=== PATIENT | male | born 1950 | race Caucasian/White ===

== ENCOUNTER 2018-12-26 17:22 | Inpatient (IN) | payer OTHER ==
[2018-12-26] MEDS ORDERED: METOPROLOL TARTRATE 5 MG/5 ML INJ IV ONE (17:45)
[2018-12-26 17:48] LABS: Absolute Lymphocytes (CBC) 2.2 K/uL (0.7-4.9); Absolute Monocytes 0.8 K/uL (0.1-1.3); Basophils % 0.8 % (0-1.3); Eosinophils % 3.6 % (0-4.4); Hematocrit 45.9 % (39.6-49.0); Lymphocytes % 30.2 % (15.3-44.8); MPV 7.6 fL (7.6-11.3); Monocytes % 10.7 % (3.3-12.3); RBC Red Blood Cell Count 5.03 M/uL (4.33-5.43)
[2018-12-26 17:59] LABS: Protime INR 1.1
--- NOTE | 2018-12-26 18:15 | RAD REPORT ---
EXAM DESCRIPTION: Jacob Single View12/26/2018 5:59 pm CLINICAL HISTORY: Shortness of breath COMPARISON: none FINDINGS: The lungs appear clear of acute infiltrate. The heart is moderately enlarged IMPRESSION: No acute abnormalities displayed
[2018-12-26 18:17] LABS: ALT/SGPT 41 U/L (12-78); AST/SGOT 32 U/L (15-37); Albumin 4.5 g/dL (3.4-5.0); Alkaline Phosphatase 78 U/L (45-117); BUN Blood Urea Nitrogen 17 mg/dL (7-18); Bicarbonate 24 mmol/L (21-32); Bilirubin Direct 0.4 mg/dL (0-0.2); Bilirubin Total 2.3 mg/dL (0.2-1.0); Glucose Level 88 mg/dL (74-106); Magnesium 2.4 mg/dL (1.8-2.4); NT PRO-BNP 936 pg/mL (<125); Potassium 3.9 mmol/L (3.5-5.1); Protein, Total 8.1 g/dL (6.4-8.2); Sodium Level 139 mmol/L (136-145); Troponin (Emerg Dept Use Only) < 0.02 ng/mL (0.0-0.045)
[2018-12-26] MEDS ORDERED: METOPROLOL XL 50 MG TAB PO ONE (18:24)
[2018-12-26] MEDS ORDERED: ENOXAPARIN 80 MG/0.8 ML SQ ONE (18:39)
--- NOTE | 2018-12-26 18:51 | ER ---
Nurse's Notes [facility] Name: Rafi Morin Age: 68 yrs Sex: Male : 1950 Arrival Date: 12/26/2018 Time: 17:24 Bed 4 Private MD: Diagnosis: Atrial fibrillation and flutter-with rapid ventricular rate Presentation: 12/26 17:24 Presenting complaint: Patient states: "I was just at the doctor's office trying to get aa5 a refill for my high blood pressure medicines and they sent me here because my heart rate is high". Pt denies any symptoms. New onset A-fib RVR. 17:24 Transition of care: PCP office. Onset of symptoms was December 26, 2018. aa5 17:24 Acuity: JACEY 2 aa5 17:24 Method Of Arrival: Wheelchair aa5 21:45 Risk Assessment: Do you want to hurt yourself or someone else? Patient reports no aj desire to harm self or others. Initial Sepsis Screen: Does the patient meet any 2 criteria? No. Patient's initial sepsis screen is negative. Does the patient have a suspected source of infection? No. Patient's initial sepsis screen is negative. Care prior to arrival: None. Triage Assessment: 17:30 General: Appears in no apparent distress. comfortable, Behavior is anxious. Pain: aj Denies pain. Neuro: Level of Consciousness is awake, alert, obeys commands, Oriented to person, place, time, situation, Appropriate for age. Cardiovascular: Denies chest pain, Capillary refill < 3 seconds in bilateral fingers Patient's skin is warm and dry. Cardiovascular: Rhythm is atrial fibrillation. Respiratory: Airway is patent Respiratory effort is even, unlabored, Respiratory pattern is regular, symmetrical. Derm: Skin is intact, is healthy with good turgor, Skin is pink, warm \\T\\ dry. normal. Historical: - Allergies: 21:46 No Known Allergies; aj - PMHx: 17:24 Hypertension; aa5 - Immunization history:: Adult Immunizations up to date. - Social history:: Smoking status: Patient/guardian denies using tobacco, Patient uses alcohol, on a daily basis. - Ebola Screening: : No symptoms or risks identified at this time. Screenin:50 Abuse screen: Denies threats or abuse. Denies injuries from another. Nutritional aj screening: No deficits noted. Tuberculosis screening: No symptoms or risk factors identified. Fall Risk None identified. Assessment: 18:05 Reassessment: No changes from previously documented assessment. General: Appears. aj 19:50 Reassessment: Patient appears in no apparent distress at this time. No changes from aj previously documented assessment. Patient and/or family updated on plan of care and expected duration. Pain level reassessed. Patient is alert, oriented x 3, equal unlabored respirations, skin warm/dry/pink. Patient denies pain at this time. Vital Signs: 17:33 BP 163 / 125; Pulse 148; Resp 22; Temp 98.4; Pulse Ox 98% on R/A; Weight 79.38 kg; aj Height 5 ft. 10 in. (177.80 cm); 17:36 BP 143 / 110; Pulse 137; aj 17:38 BP 149 / 115; Pulse 128; aj 17:50 BP 141 / 110; Pulse 116; aj 18:05 BP 136 / 103; Pulse 119; aj 21:42 BP 101 / 84; Pulse 104; Resp 19; Pulse Ox 99% on R/A; aj 17:33 Body Mass Index 25.11 (79.38 kg, 177.80 cm) aj ED Course: 17:24 Patient arrived in ED. jr8 17:24 Arm band placed on. aa5 17:24 Patient placed in an exam room, on a stretcher. aa5 17:30 Ren Paz PA is PHCP. jr8 17:30 Breana Andrade MD is Attending Physician. jr8 17:30 Christina Kinney, RN is Primary Nurse. aj 17:42 Triage completed. aa5 17:59 XRAY Chest (1 view) In Process Unspecified. EDMS 18:02 EKG done, by ED staff. 3 18:50 Daryl Ram MD is Hospitalizing Provider. jr8 19:00 Inserted saline lock: 20 gauge in right antecubital area, using aseptic technique. aj Blood collected. 19:50 Patient has correct armband on for positive identification. aj 21:44 No provider procedures requiring assistance completed. Patient admitted, IV remains in aj place. intact. Administered Medications: 07:33 Drug: Metoprolol 5 mg Route: IVP; Site: right antecubital; aj 17:36 Drug: Metoprolol 5 mg Route: IVP; Site: right antecubital; aj 17:36 Follow up: BP 143 / 110; Pulse 137 bpm; Response: No adverse reaction aj 17:38 Follow up: BP 149 / 115; Pulse 128 bpm; Response: No adverse reaction aj 17:42 Drug: Metoprolol 5 mg Route: IVP; Site: right antecubital; aj 17:50 Follow up: BP 141 / 110; Pulse 116 bpm; Response: No adverse reaction aj 18:15 Drug: Metoprolol TARTRATE (Lopressor) 50 mg Route: PO; aj 21:53 Follow up: Response: Blood pressure is lowered aj 18:28 Drug: Lovenox 1 mg/kg Route: Sub-Q; Site: abdomen; aj 21:53 Follow up: Response: No adverse reaction aj Outcome: 18:50 Decision to Hospitalize by Provider. janice 21:52 Admitted to Med/surg accompanied by tech, room 206, Report called to Penny warner 21:52 Condition: good 21:52 Instructed on the need for admit. 22:02 Patient left the ED. aj Signatures: Dispatcher [employer] Christina Corona, RN RN Leanne Humphrey, RN RN [email or web address] Ren Paz PA PA jr8 Jane Kauffman 3
--- NOTE | 2018-12-26 18:51 | EDPHYS ---
Physician Documentation [facility] Name: Rafi Morin Age: 68 yrs Sex: Male : 1950 Arrival Date: 12/26/2018 Time: 17:24 Bed 4 Private MD: ED Physician Breana Andrade HPI: 12/26 17:44 This 68 yrs old Male presents to ER via Wheelchair with complaints of jr8 Elevated HR. 17:44 Onset: The symptoms/episode began/occurred at an unknown time. Duration: The patient or jr8 guardian reports a single episode, that is still ongoing. Associated signs and symptoms: The patient has no apparent associated signs or symptoms. Severity of symptoms: At their worst the symptoms were very mild in the emergency department the symptoms are unchanged. It is unknown whether or not the patient has had similar symptoms in the past. The patient has been recently seen by a physician: the patient's primary care provider. Patient stated that he was at PCP office for routine f/u today for BP medication refill. At office it was noted that patient has markedly elevated irregular pulse. ECG completed at office showing atrial fib with RVR. Patient denies any symptoms. Unknown how long this had been going on. Brought to ED for evaluation. Historical: - Allergies: 21:46 No Known Allergies; aj - PMHx: 17:24 Hypertension; aa5 - Immunization history:: Adult Immunizations up to date. - Social history:: Smoking status: Patient/guardian denies using tobacco, Patient uses alcohol, on a daily basis. - Ebola Screening: : No symptoms or risks identified at this time. ROS: 17:44 Eyes: Negative for injury, pain, redness, and discharge, ENT: Negative for injury, jr8 pain, and discharge, Neck: Negative for injury, pain, and swelling, Cardiovascular: Negative for chest pain, palpitations, and edema, Respiratory: Negative for shortness of breath, cough, wheezing, and pleuritic chest pain, Abdomen/GI: Negative for abdominal pain, nausea, vomiting, diarrhea, and constipation, Back: Negative for injury and pain, MS/Extremity: Negative for injury and deformity, Skin: Negative for injury, rash, and discoloration, Neuro: Negative for headache, weakness, numbness, tingling, and seizure. Exam: 17:44 Eyes: Pupils equal round and reactive to light, extra-ocular motions intact. Lids and jr8 lashes normal. Conjunctiva and sclera are non-icteric and not injected. Cornea within normal limits. Periorbital areas with no swelling, redness, or edema. ENT: Nares patent. No nasal discharge, no septal abnormalities noted. Tympanic membranes are normal and external auditory canals are clear. Oropharynx with no redness, swelling, or masses, exudates, or evidence of obstruction, uvula midline. Mucous membranes moist. Neck: Trachea midline, no thyromegaly or masses palpated, and no cervical lymphadenopathy. Supple, full range of motion without nuchal rigidity, or vertebral point tenderness. No Meningismus. Chest/axilla: Normal chest wall appearance and motion. Nontender with no deformity. No lesions are appreciated. Respiratory: Lungs have equal breath sounds bilaterally, clear to auscultation and percussion. No rales, rhonchi or wheezes noted. No increased work of breathing, no retractions or nasal flaring. Abdomen/GI: Soft, non-tender, with normal bowel sounds. No distension or tympany. No guarding or rebound. No evidence of tenderness throughout. Back: No spinal tenderness. No costovertebral tenderness. Full range of motion. Skin: Warm, dry with normal turgor. Normal color with no rashes, no lesions, and no evidence of cellulitis. MS/ Extremity: Pulses equal, no cyanosis. Neurovascular intact. Full, normal range of motion. Neuro: Awake and alert, GCS 15, oriented to person, place, time, and situation. Cranial nerves II-XII grossly intact. Motor strength 5/5 in all extremities. Sensory grossly intact. Cerebellar exam normal. Normal gait. 17:44 Cardiovascular: Rate: tachycardic, actual rate is 160 bpm, Rhythm: irregularly irregular, Pulses: Pulses are 2+ in right radial artery and left radial artery. Edema: is not appreciated, JVD: is not appreciated. 17:51 ECG was reviewed by the Attending Physician. [facility] Vital Signs: 17:33 BP 163 / 125; Pulse 148; Resp 22; Temp 98.4; Pulse Ox 98% on R/A; Weight 79.38 kg; aj Height 5 ft. 10 in. (177.80 cm); 17:36 BP 143 / 110; Pulse 137; aj 17:38 BP 149 / 115; Pulse 128; aj 17:50 BP 141 / 110; Pulse 116; aj 18:05 BP 136 / 103; Pulse 119; aj 21:42 BP 101 / 84; Pulse 104; Resp 19; Pulse Ox 99% on R/A; aj 17:33 Body Mass Index 25.11 (79.38 kg, 177.80 cm) aj MDM: 17:30 Patient medically screened. [facility] 18:49 Data reviewed: vital signs, nurses notes, lab test result(s), EKG, radiologic studies, jr8 plain films. Data interpreted: Pulse oximetry: on room air is 98 %. Interpretation: normal. Counseling: I had a detailed discussion with the patient and/or guardian regarding: the historical points, exam findings, and any diagnostic results supporting the discharge/admit diagnosis, lab results, radiology results, the need for further work-up and treatment in the hospital. Physician consultation: Ranjith Miller DO was called at 18:50, was contacted at 18:50, regarding admission, to the telemetry unit. consult, patient's condition, and will see patient. 12/26 17:30 Order name: Basic Metabolic Panel; Complete Time: 18:21 12/26 17:30 Order name: CBC with Diff; Complete Time: 17:59 12/26 17:30 Order name: LFT's; Complete Time: 18:21 12/26 17:30 Order name: Magnesium; Complete Time: 18:21 12/26 17:30 Order name: NT PRO-BNP; Complete Time: 18:21 12/26 17:30 Order name: PT-INR; Complete Time: 18:08 12/26 17:30 Order name: Troponin (emerg Dept Use Only); Complete Time: 18:21 12/26 17:30 Order name: XRAY Chest (1 view); Complete Time: 18:21 12/26 17:30 Order name: EKG; Complete Time: 17:31 12/26 17:30 Order name: Cardiac monitoring; Complete Time: 17:46 12/26 17:30 Order name: EKG - Nurse/Tech; Complete Time: 17:46 12/26 17:30 Order name: IV Saline Lock; Complete Time: 17:46 12/26 17:30 Order name: Labs collected and sent; Complete Time: 17:46 12/26 17:30 Order name: O2 Per Protocol; Complete Time: :12/26 17:30 Order name: O2 Sat Monitoring; Complete Time: 17: EC:51 Rate is 145 beats/min. Rhythm is irregularly irregular, A fib. QRS [place] is Normal. QRS jr8 interval is normal at 80 msec. QT interval is prolonged at 459 msec. No Q waves. T waves are Flattened in lead aVL. No ST changes noted. Clinical impression: Atrial Fibrillation. Interpreted by me. Reviewed by me. Administered Medications: 07:33 Drug: Metoprolol 5 mg Route: IVP; Site: right antecubital; aj 17:36 Drug: Metoprolol 5 mg Route: IVP; Site: right antecubital; aj 17:36 Follow up: BP 143 / 110; Pulse 137 bpm; Response: No adverse reaction aj 17:38 Follow up: BP 149 / 115; Pulse 128 bpm; Response: No adverse reaction aj 17:42 Drug: Metoprolol 5 mg Route: IVP; Site: right antecubital; aj 17:50 Follow up: BP 141 / 110; Pulse 116 bpm; Response: No adverse reaction aj 18:15 Drug: Metoprolol TARTRATE (Lopressor) 50 mg Route: PO; aj 21:53 Follow up: Response: Blood pressure is lowered aj 18:28 Drug: Lovenox 1 mg/kg Route: Sub-Q; Site: abdomen; aj 21:53 Follow up: Response: No adverse reaction aj Disposition: 12/26/18 18:50 Hospitalization ordered by Daryl Ram for Observation. Preliminary diagnosis is Atrial fibrillation and flutter - with rapid ventricular rate. - Bed requested for Telemetry/MedSurg (observation). - Status is Observation. aj - Condition is Stable. - Problem is new. - Symptoms have improved. UTI on Admission? No Signatures: Dispatcher [employer] Christina Corona RN Leanne Jose RN RN aa5 Ren Paz PA PA jr8 Anita Webb RN RN cg Corrections: (The following items were deleted from the chart) 21:26 18:50 Hospitalization Ordered by Daryl Ram MD for Observation. Preliminary cg diagnosis is Atrial fibrillation and flutter - with rapid ventricular rate. Bed requested for Telemetry/MedSurg (observation). Status is Observation. Condition is Stable. Problem is new. Symptoms have improved. UTI on Admission? No. jr8 22:02 21:26 12/26/2018 18:50 Hospitalization Ordered by Daryl Ram MD for Observation. aj Preliminary diagnosis is Atrial fibrillation and flutter - with rapid ventricular rate. Bed requested for Telemetry/MedSurg (observation). Status is Observation. Condition is Stable. Problem is new. Symptoms have improved. UTI on Admission? No. cg
--- NOTE | 2018-12-26 21:04 | P.HP ---
Certification for Inpatient Patient admitted to: Observation With expected LOS: <2 Midnights Practitioner: I am a practitioner with admitting privileges, knowledge of patient current condition, hospital course, and medical plan of care. Services: Services provided to patient in accordance with Admission requirements found in Title 42 Section 412.3 of the Code of Federal Regulations Patient History Date of Service: 12/26/18 Reason for admission: new onset A.Fib History of Present Illness: Mr Morin is a 68 years old male with history of HTN, who went today to his PCP office to have refill of his home medication. While having his vitals signs checked, he was found to be tachycardic at 160 bpm. He denied any chest pain, SOB, dizziness or palpitation associated. The patient then was referred to ED for evaluation. EKG at arrival showed A.Fib at 140's bpm. Lab work remarkable for elevated total bili 2.3 and pro-BNP. He states that drinks about 6 beers every night, sometimes more. CXR shows no acute abnormalities. In ER he was treated with several rounds of Lopressor IV, currently his HR is 120's with stable BP. Home medications list reviewed: Yes - Past Medical/Surgical History -: HTN Past Surgical History: Reviewed- Non-Contributory - Family History Family History: Reviewed- Non-Contributory - Social History Smoking Status: Never smoker Alcohol use: Yes CD- Drugs: No Place of Residence: Home Review of Systems 10-point ROS is otherwise unremarkable Physical Examination - Physical Exam General: Alert, In no apparent distress HEENT: Atraumatic, PERRLA, Mucous membr. moist/pink, EOMI, Sclerae nonicteric Neck: Supple, 2+ carotid pulse no bruit, No LAD, Without JVD or thyroid abnormality Respiratory: Clear to auscultation bilaterally, Normal air movement Cardiovascular: Normal S1 S2, Irregular heart rate/rhythm Gastrointestinal: Normal bowel sounds, No tenderness Musculoskeletal: No tenderness Integumentary: No rashes Neurological: Normal speech, Normal strength at 5/5 x4 extr, Normal tone, Normal affect Lymphatics: No axilla or inguinal lymphadenopathy - Studies Laboratory Data (last 24 hrs) 12/26/18 17:30: PT 12.9 H, INR 1.10 12/26/18 17:30: WBC 7.4, Hgb 15.0, Hct 45.9, Plt Count 192 12/26/18 17:30: Sodium 139, Potassium 3.9, BUN 17, Creatinine 0.78, Glucose 88, Magnesium 2.4, Total Bilirubin 2.3 H, AST 32, ALT 41, Alkaline Phosphatase 78 Assessment and Plan - Problems (Diagnosis) (1) New onset atrial fibrillation Current Visit: Yes Status: Acute (2) HTN (hypertension) Current Visit: Yes Status: Acute Qualifiers: Hypertension type: essential hypertension Qualified Code(s): I10 - Essential (primary) hypertension (3) Alcohol abuse Current Visit: Yes Status: Acute - Plan Will admit the patient due to new onset A.Fib. Will order ECHO, TSH, cardiology consult. Continue with oral lopressor. Will start Eliquis, this needs to be changed for warfarin if A.fib is secondary to valvular disease. Follow up cardiology recommendations. - Advance Directives Does patient have a Living Will: No Does patient have a Durable POA for Healthcare: No - Code Status/Comfort Care Code Status Assessed: Yes Code Status: Full Code
[2018-12-26] MEDS: APIXABAN 5 MG TABLET PO SCH (21:44)
[2018-12-26] MEDS ORDERED: LORAZEPAM 1 MG TABLET PO PRN (21:44)
[2018-12-26] MEDS ORDERED: ONDANSETRON 4 MG/2 ML VIAL IV PRN (21:44)
[2018-12-26 23:00] VITALS: BMI 26.3
[2018-12-27 05:56] LABS: Magnesium 2.4 mg/dL (1.8-2.4); Potassium 4.1 mmol/L (3.5-5.1); Thyroid Stimulating Hormone 2.21 uIU/mL (0.360-3.740)
[2018-12-27 05:57] LABS: Urine Appearance CLEAR; Urine Bilirubin NEGATIVE (NEG); Urine Blood NEGATIVE (NEG); Urine Color YELLOW; Urine Glucose NEGATIVE (NEG); Urine Protein NEGATIVE (NEG); Urine Specific Gravity 1.015 (1.005-1.030)
[2018-12-27 05:58] LABS: Urine Microscopic Reflex NO UMIC
[2018-12-27] MEDS ORDERED: METOPROLOL TAR 25 MG TAB PO SCH (06:00)
--- NOTE | 2018-12-27 07:13 | EKG ---
Test Date: 2018-12-26 Test Time: 17:30:37 Test Baker: [place] MEASUREMENT RESULTS: Intervals: Rate: 145 NH: QRSD: 80 QT: 296 QTc: 459 Mcdonald: P: NH: QRS: 0 T: 97 INTERPRETIVE STATEMENTS: Atrial fibrillation with rapid ventricular response Nonspecific ST and T wave abnormality Abnormal ECG No previous ECG available for comparison Electronically Signed On 12-27-18 07:12:31 CDT by Shelton Humphries
[2018-12-27] MEDS ORDERED: PNEUMOCOCCAL VACCINE 0.5 ML IMVAC ONE (08:00)
[2018-12-27] MEDS: APIXABAN 5 MG TABLET PO SCH ×2 (08:28→21:12)
[2018-12-27] MEDS: SOTALOL HCL 80 MG TAB PO SCH ×2 (09:14→21:12)
[2018-12-27] MEDS: FOLIC ACID 1 MG TABLET PO SCH (09:15)
[2018-12-27] MEDS: THIAMINE HCL 100 MG TABLET PO SCH (09:15)
[2018-12-27] MEDS ORDERED: NA CHLORIDE 0.9% 250 ML IV ONE (12:26)
--- NOTE | 2018-12-27 13:16 | P.PN ---
Subjective Date of Service: 12/27/18 Primary Care Provider: none Chief Complaint: new onset A.Fib Subjective: Improving Physical Examination - Vital Signs Temperature: 97.0 F Blood Pressure: 90/60 Pulse: 51 Respirations: 18 Pulse Ox (%): 94 - Physical Exam General: Alert, In no apparent distress, Oriented x3, Cooperative HEENT: Atraumatic Neck: Supple Respiratory: Clear to auscultation bilaterally, Normal air movement Cardiovascular: Irregular heart rate/rhythm (Atrial fibrillation slightly elevated rate) Gastrointestinal: Normal bowel sounds, Soft and benign, Non-distended, No tenderness, No masses, No rebound, No guarding Musculoskeletal: No erythema, No tenderness, No warmth Integumentary: No tenderness/swelling, No erythema, No warmth, No cyanosis Neurological: Normal speech, Normal strength at 5/5 x4 extr, Normal tone, Normal affect - Studies Laboratory Data (last 24 hrs) 12/26/18 17:30: PT 12.9 H, INR 1.10 12/26/18 17:30: WBC 7.4, Hgb 15.0, Hct 45.9, Plt Count 192 12/26/18 17:30: Sodium 139, Potassium 3.9, BUN 17, Creatinine 0.78, Glucose 88, Magnesium 2.4, Total Bilirubin 2.3 H, AST 32, ALT 41, Alkaline Phosphatase 78 Medications List Reviewed: Yes Assessment & Plan Discharge Plan: Home Plan to discharge in: 24 Hours Physician Review Additional Text: Impression: New onset atrial fibrillation Alcohol abuse Plan: New onset atrial fibrillation: Case discussed at length with cardiology. Patient will be transition from metoprolol to Betapace. Patient on chronic anti coagulation therapy at this time. Patient had low blood pressure this morning. Patient given fluid bolus. Patient asymptomatic. Will provide IV fluids at this time. Will monitor closely. Will continue with Betapace 80 mg 1 pill twice daily. Thyroid level unremarkable. Echocardiogram pending. Anticipate discharge in the next 24 hr. Alcohol abuse: Will provide thiamine. No evidence of withdrawal. Cessation addressed in detail. Time Spent Managing Pts Care (In Minutes): 55
[2018-12-27] MEDS: NACHLORIDE 0.45% 1,000 ML IV SCH (13:24)
--- NOTE | 2018-12-27 15:31 | CON ---
Date of Consultation: 12/27/[address] Lee's service on 12/26/2018. I saw the patient on 12/27/2018. Reason For Consultation: Atrial fibrillation. History Of Present Illness: Mr. Morin is a 68-year-old white male, has a history of hypertension, alcohol abuse, otherwise fairly healthy. He went to Dr. Hauser's office for a regular checkup and w as found to be in atrial fibrillation, rapid ventricular response without any symptoms. He denied PN D, orthopnea, pedal edema, palpitations, or syncope. Denied any chest pain. Denied any unexplained nausea, vomiting, diaphoresis. Past Medical History: Hypertension. Allergies: NONE. Review of Systems: Negative. Social History: Positive for alcohol. Family History: Negative. Physical Examination: Vital Signs: Stable. He is in atrial fibrillation, rate of 110 to 130. HEENT: Negative. Neck: Supple with no bruit. Chest: Clear. Cardiac: Revealed atrial fibrillation. No murmurs, gallops, or rubs. Abdomen: Benign. Extremities: Revealed no clubbing, cyanosis, or edema. Diagnostic Data: His chest x-ray was negative. EKG showed atrial fibrillation. BNP was 936. Rest of it was normal. Impression And Plan: Atrial fibrillation of unknown duration. The patient may have been in atrial f ibrillation for longer than we think. His TSH is normal. Echocardiogram is pending. Beta-blockers have not worked so far. The rate is better controlled. I agree with Gissell. I think we should swi tch him to Betapace and see how he does. Eventually, a stress test may be indicated. His blood pres sure is well controlled. BNP elevation is nonspecific and may be secondary to atrial fibrillation. Case was discussed with Dr. Miller. REESE/MARIA VICTORIA Voice ID: [id number] Report ID: [id number]
--- NOTE | 2018-12-28 08:16 | ECHO ---
HEIGHT: 6 ft 1 in WEIGHT: 199 lb 12.8 oz DATE OF STUDY: 12/27/[address]: Daryl Lee MD 2-DIMENSIONAL: YES M.MODE: YES DOPPLER: YES COLOR FLOW: YES TDS: NO PORTABLE: NO DEFINITY: NO BUBBLE STUDY: NO DIAGNOSIS: ATRIAL FIBRILLATION CARDIAC HISTORY: CATHERIZATION: NO SURGERY: NO PROSTHETIC VALVE: NO PACEMAKER: NO MEASUREMENTS (cm) DIASTOLIC (NORMALS) SYSTOLIC (NORMALS) IVSd 1.1 (0.6-1.2) LA Diam 4.5 (1.9-4.0) LVEF 51% LVIDd 3.6 (3.5-5.7) LVIDs 2.7 (2.0-3.5) %FS 25% LVPWd 1.3 (0.6-1.2) Ao Diam 3.4 (2.0-3.7) 2 DIMENSIONAL ASSESSMENT: RIGHT ATRIUM: DILATED LEFT ATRIUM: DILATED RIGHT VENTRICLE: DILATED LEFT VENTRICLE: NORMAL TRICUSPID VALVE: NORMAL MITRAL VALVE: NORMAL PULMONIC VALVE: NORMAL AORTIC VALVE: NORMAL PERICARDIAL EFFUSION: NONE AORTIC ROOT: NORMAL LEFT VENTRICULAR WALL MOTION: PARADOXICAL SEPTAL MOTION. DOPPLER/COLOR FLOW: MILD MITRAL REGURGITATION. MODERATE TRICUSPID REGURGITATION. MODERATE PULMONARY HYPERTENSION. ESTIMATED RIGHT VENTRICULAR SYSTOLIC PRESSURE 50 MMHG. ESTIMATED RIGHT ATRIAL PRESSURE 15MMGH. COMMENTS: NORMAL LEFT VENTRICULAR EJECTION FRACTION WITH PARADOXICAL SEPTAL MOTION. DILATED RIGHT ATRIUM, RIGHT VENTRICLE, AND LEFT ATRIUM. MILD MITRAL REGURGITATION. MODERATE TRICUSPID REGURGITATION. MODERATE PULMONARY HYPERTENSION. ATRIAL FIBRILLATION. TECHNOLOGIST: JAMAL MATUTE [facility]
[2018-12-28] MEDS: FOLIC ACID 1 MG TABLET PO SCH (08:22)
[2018-12-28] MEDS: APIXABAN 5 MG TABLET PO SCH (08:23)
[2018-12-28] MEDS: THIAMINE HCL 100 MG TABLET PO SCH (08:23)
[2018-12-28] MEDS: SOTALOL HCL 80 MG TAB PO SCH (08:23)
--- NOTE | 2018-12-28 09:21 | P.DS ---
Admission Date: 12/27/18 Discharge Date: 12/28/18 Primary Care Provider: Dr. Castro Disposition: ROUTINE DISCHARGE Discharge Condition: GOOD Reason for Admission: new onset A.Fib Consultations: Cardiology-Dr. Craven/Dr. Humphries Procedures: CXR: COMPARISON: none FINDINGS: The lungs appear clear of acute infiltrate. The heart is moderately enlarged IMPRESSION: No acute abnormalities displayed ECHO: EF 51% LEFT VENTRICULAR WALL MOTION: PARADOXICAL SEPTAL MOTION. DOPPLER/COLOR FLOW: MILD MITRAL REGURGITATION. MODERATE TRICUSPID REGURGITATION. MODERATE PULMONARY HYPERTENSION. ESTIMATED RIGHT VENTRICULAR SYSTOLIC PRESSURE 50 MMHG. ESTIMATED RIGHT ATRIAL PRESSURE 15MMGH. COMMENTS: NORMAL LEFT VENTRICULAR EJECTION FRACTION WITH PARADOXICAL SEPTAL MOTION. DILATED RIGHT ATRIUM, RIGHT VENTRICLE, AND LEFT ATRIUM. MILD MITRAL REGURGITATION. MODERATE TRICUSPID REGURGITATION. MODERATE PULMONARY HYPERTENSION. ATRIAL FIBRILLATION. Medical Problem List: New onset atrial fibrillation Moderate Pulmonary hypertension with moderate tricuspid regurgitation Alcohol abuse Brief History of Present Illness: 68-year-old male presented to his PCP for follow up. Patient found to have irregular heartbeat. Patient with AFib with RVR. Patient was seen and evaluated in the emergency room. Patient admitted for further evaluation and treatment. Hospital Course: Patient presented with irregular heartbeat. Patient found to have atrial fibrillation. Patient was admitted for treatment. Patient seen and evaluated by Cardiology. Patient was placed on anti coagulation therapy along with Betapace. Patient remains in atrial fibrillation. Rate stable at this time. Echocardiogram shows moderate pulmonary hypertension with moderate tricuspid regurgitation. Patient without any significant chest pain or shortness of breath. Medications have been adjusted. Patient no longer on amlodipine. At discharge patient will continue with Betapace 80 mg 1 pill twice daily and Eliquis 5 mg 1 pill twice daily. Patient will be provided education on atrial fibrillation and chronic anti coagulation therapy. Recommend to follow up with cardiology in 1-2 weeks to follow up this hospitalization and continue his care. Patient with history of alcohol abuse. Patient may continue with thiamine 1 pill daily. Recommend alcohol cessation. Education will be provided. Vital Signs/Physical Exam: Temp Pulse Resp BP Pulse Ox 98.4 F 119 H 16 120/84 98 12/28/18 04:00 12/28/18 04:00 12/28/18 04:00 12/28/18 04:00 12/28/18 04:00 General: Alert, In no apparent distress, Oriented x3, Cooperative HEENT: Atraumatic Neck: Supple Respiratory: Clear to auscultation bilaterally, Normal air movement Cardiovascular: Irregular heart rate/rhythm (Atrial fibrillation) Gastrointestinal: Normal bowel sounds, Soft and benign, Non-distended, No tenderness, No masses, No rebound, No guarding Musculoskeletal: No erythema, No tenderness, No warmth Integumentary: No tenderness/swelling, No erythema, No warmth, No cyanosis Neurological: Normal speech, Normal strength at 5/5 x4 extr, Normal tone, Normal affect Laboratory Data at Discharge: WBC 7.4 K/uL (4.3-10.9) 12/26/18 17:30 Hgb 15.0 g/dL (13.6-17.9) 12/26/18 17:30 Hct 45.9 % (39.6-49.0) 12/26/18 17:30 Plt Count 192 K/uL (152-406) 12/26/18 17:30 PT 12.9 SECONDS (9.5-12.5) H 12/26/18 17:30 INR 1.10 12/26/18 17:30 Sodium 142 mmol/L (136-145) 12/27/18 05:00 Potassium 4.1 mmol/L (3.5-5.1) 12/27/18 05:00 BUN 19 mg/dL (7-18) H 12/27/18 05:00 Creatinine 0.88 mg/dL (0.55-1.3) 12/27/18 05:00 Glucose 102 mg/dL (74-106) 12/27/18 05:00 Magnesium 2.4 mg/dL (1.8-2.4) 12/27/18 05:00 Total Bilirubin 2.3 mg/dL (0.2-1.0) H 12/26/18 17:30 AST 32 U/L (15-37) 12/26/18 17:30 ALT 41 U/L (12-78) 12/26/18 17:30 Alkaline Phosphatase 78 U/L (45-117) 12/26/18 17:30 Home Medications: Apixaban [Eliquis] 5 mg PO BID #60 tablet 12/27/18 Sotalol HCl [Betapace*] 80 mg PO BID #60 tab 12/27/18 Thiamine HCl [Vitamin B-1*] 100 mg PO DAILY #30 tablet 12/27/18 New Medications: Apixaban [Eliquis] 5 mg PO BID #60 tablet Sotalol HCl [Betapace*] 80 mg PO BID #60 tab Thiamine HCl [Vitamin B-1*] 100 mg PO DAILY #30 tablet Patient Discharge Instructions: 1. Recommend to follow up with his PCP in 1 week to follow up this hospitalization. 2. Patient presented with irregular heartbeat. Patient found to have atrial fibrillation. Patient was admitted for treatment. Patient seen and evaluated by Cardiology. Patient was placed on anti coagulation therapy along with Betapace. Patient remains in atrial fibrillation. Rate stable at this time. Echocardiogram shows moderate pulmonary hypertension with moderate tricuspid regurgitation. Patient without any significant chest pain or shortness of breath. Medications have been adjusted. Patient no longer on amlodipine. At discharge patient will continue with Betapace 80 mg 1 pill twice daily and Eliquis 5 mg 1 pill twice daily. Patient will be provided education on atrial fibrillation and chronic anti coagulation therapy. Recommend to follow up with cardiology in 1-2 weeks to follow up this hospitalization and continue his care. 3. Patient with history of alcohol abuse. Patient may continue with thiamine 1 pill daily. Recommend alcohol cessation. Education will be provided. Diet: AHA Activity: Ad angelo Time spent managing pt's care (in minutes): 55
[2018-12-28] MEDS: NACHLORIDE 0.45% 1,000 ML IV SCH (10:00)
[2018-12-28 10:35] VITALS: BP 134/79; TEMP 97.9
[2018-12-28 10:51] VITALS: O2SAT 98
== END 2018-12-28 12:05 | disposition home or self-care (01) | DRG 310 ==
LOC: ER 17:22 → ERHOLD 21:04 → 2ND 21:53 → OBSVTOIN 12-27 20:04
PROVIDERS: ADMIT Internal Medicine; ATTEND Family Medicine
DX: I48.91 Unspecified atrial fibrillation (principal); I10 Essential (primary) hypertension; F10.10 Alcohol abuse, uncomplicated; I27.20 Pulmonary hypertension, unspecified; I36.1 Nonrheumatic tricuspid (valve) insufficiency; Z23 Encounter for immunization
CPT/HCPCS: 36415; 71045; 80048; 80076; 81003; 83735; 83880; 84443; 84484; 85025; 85610; 90670; 93005; 93306; 96372; 96374; 99285; G0009; G0378; J1650

== ENCOUNTER 2019-01-22 07:26 | Day surgery (SDC) | payer OTHER ==
--- OUTSIDE RECORDS SUMMARY | 2019-01-22 07:27 | XMS REPORT | Clinical Summary ---
:1950 Author Organization [facility] Address [address] [place] [address] Care Team Providers Name Role Phone Ranulfo Hauser MD Primary Care Provider Allergies No Known Allergies Medications Medication Sig Dispensed Refills Start Date End Date Status amLODIPine (NORVASC) 10 1 11/14/2018 Active mg tablet naproxen sodium (ALEVE) Take by mouth. 0 Active 220 mg capsule acetaminophen (TYLENOL) Take 325 mg by 0 Active 325 MG tablet mouth every 6 (six) hours as needed for fever. Active Problems Not on file Encounters Date Type Specialty Care Team Description 12/18/2018 Office Visit Orthopedic Surgery Kal Nixon, Arthralgia of right knee (Primary Dx); Primary osteoarthritis of right knee after 01/21/2018 Social History Tobacco Use Types Packs/Day Years Used Date Never Smoker Smokeless Tobacco: Never Used Alcohol Use Drinks/Week oz/Week Comments Yes 24 Cans of beer Sex Assigned at Date Recorded Not on file Job Start Date Occupation Industry Not on file Not on file Not on file Travel History Travel Start Travel End No recent travel history available. Last Filed Vital Signs Vital Sign Reading Time Taken Blood Pressure - - Pulse - - Temperature - - Respiratory Rate - - Oxygen Saturation - - Inhaled Oxygen Concentration - - Weight 90.7 kg (200 lb) 12/18/2018 12:11 PM CDT Height 185.4 cm (6' 1") 12/18/2018 12:11 PM CDT Body Mass Index 26.39 12/18/2018 12:11 PM CDT Plan of Treatment Health Maintenance Due Date Last Done Comments COLON CANCER SCREENING 1998 SHINGLES VACCINES (#1) 1998 65+ PNEUMOCOCCAL VACCINE (1 of 2 - PCV13) 2013 PNEUMOCOCCAL POLYSACCHARIDE VACCINE AGE 65 AND OVER 2013 INFLUENZA VACCINE 03/28/2019 Procedures Procedure Name Priority Date/Time Associated Diagnosis Comments XR KNEE 4+ VW RIGHT Routine 12/18/2018 12:28 PM Arthralgia of right Results for this CDT knee procedure are in the results section. after 01/21/2018 Results XR Knee 4+ Vw Right (12/18/2018 12:28 PM CDT) Specimen Narrative Performed At Severe right knee OA with bone on bone contact, cystic changes, marginal [facility] osteophytes, loose bodies, bones reasonably mineralized.Valgus malalignment. Performing Organization Address City/State/Zipcode Phone Number [facility] [address] [place] [address] after 01/21/2018 RD (Home) [address] [place] [phone] Advance Directives Patient has advance care planning documents on file. For more information, please contact:Oswald Bonds[address] [place] [address]
[2019-01-22] MEDS ORDERED: NA CHLORIDE 0.9% 500 ML ONE (08:45)
[2019-01-22 09:12] LABS: Protime INR 1.49
[2019-01-22] MEDS ORDERED: MIDAZOLAM HCL 5 MG/5 ML INJ ONE ×2 (10:06→10:20)
[2019-01-22] MEDS ORDERED: ATROPINE SULF 1 MG/10 ML SYR IV ONE (10:06)
[2019-01-22] MEDS ORDERED: FENTANYL CITR 100 MCG/2 ML ONE (10:22)
[2019-01-22] MEDS ORDERED: FLUMAZENIL 0.1 MG/ML (5 mL VIAL) IV ONE (10:26)
[2019-01-22 12:22] VITALS: BP 118/74; TEMP 97.7; O2SAT 97
--- NOTE | 2019-01-22 15:38 | EKG ---
Test Date: 2019-01-22 Test Time: 10:19:46 Dampproofer: LORETTA MEASUREMENT RESULTS: Intervals: Rate: 81 CO: 194 QRSD: 76 QT: 390 QTc: 453 [place]: P: 77 CO: 194 QRS: 8 T: 57 INTERPRETIVE STATEMENTS: Sinus rhythm with marked sinus arrhythmia Nonspecific T wave abnormality Abnormal ECG Compared to ECG 12/26/2018 17:30:37 T-wave abnormality now present Atrial fibrillation no longer present ST (T wave) deviation no longer present Electronically Signed On 01-22-19 15:37:30 CDT by Shelton Humphries
--- NOTE | 2019-01-22 17:57 | OP ---
Date of Procedure: 01/22/2019 Surgeon: Shelton Humphries MD Manager Play: Olivia Toro. Total conscious sedation 30 minutes. The patient's O2 saturation did drop to about 85% after the sedation and non-rebreather mask was used to and the Versed was reversed with Romazicon. Indication For The Procedure: Atrial fibrillation. Procedure: Direct current cardioversion. Mr. Morin is a 68-year-old white male, a patient of Dr. Hauser, with new onset atrial fibrillation , has failed Betapace at 80 b.i.d. along with Eliquis, has some symptoms of dyspnea on exertion. A c ardioversion was set up for today as an outpatient. Description Of Procedure: He received 13 mg of Versed and 50 mg of fentanyl for sedation. He receiv ed 100 joules 1 shock and converted to sinus rhythm without any complications or blood loss. Postoperative Diagnosis: Successful cardioversion of atrial fibrillation to sinus rhythm. We will c ontinue same therapy with Betapace and Eliquis. He will go home today once he wakes up. REESE/MARIA VICTORIA Voice ID: [id number] Report ID: [id number]
== END 2019-01-22 12:15 | disposition home health service (06) ==
LOC: CCL 07:26
PROC: 5A2204Z Restoration of Cardiac Rhythm, Single (ICD-10-PCS; principal; 2019-01-22)
DX: I48.91 Unspecified atrial fibrillation (principal); I10 Essential (primary) hypertension
CPT/HCPCS: 36415; 85610; 85730; 92960; 93005; J2250; J3010

== ENCOUNTER 2019-04-04 06:31 | Day surgery (SDC) | payer OTHER ==
[2019-04-03 12:02] LABS: Absolute Lymphocytes (CBC) 1.4 K/uL (0.7-4.9); Basophils % 0.7 % (0-1.3); Lymphocytes % 21.4 % (15.3-44.8); MPV 7.1 fL (7.6-11.3)
[2019-04-03 12:06] LABS: Protime INR 1.42
[2019-04-03 12:28] LABS: Potassium 4.1 mmol/L (3.5-5.1)
--- OUTSIDE RECORDS SUMMARY | 2019-04-04 06:33 | XMS REPORT | Clinical Summary ---
:1950 Author Organization [facility] Address [address] [place] [address] Care Team Providers Name Role Phone Ranulfo Hauser MD Primary Care Provider Allergies Not on File Medications Medication Sig Dispensed Refills Start Date End Date Status amLODIPine 1 11/14/2018 Active (NORVASC) 10 mg tablet apixaban (ELIQUIS) Take 5 mg by 0 Active 5 mg tablet mouth 2 (two) times a day. aspirin (ECOTRIN) Take 1 tablet 60 tablet 0 03/18/2019 Active 81 MG enteric (81 mg total) 9 coated tablet by mouth 2 (two) times a day for 30 days. amIODarone Take 1 tablet 30 tablet 0 03/19/2019 Active (PACERONE) 200 MG (200 mg total) 9 tablet by mouth daily for 30 days. metoprolol Take 1 tablet 30 tablet 0 03/18/2019 Active succinate XL (25 mg total) 9 (TOPROL XL) 25 mg by mouth daily 24 hr tablet for 30 days. gabapentin Take 1 capsule 14 capsule 1 03/27/2019 Active (NEURONTIN) 300 mg (300 mg total) 9 capsule by mouth nightly as needed (nerve pain) for up to 14 days. naproxen sodium Take by mouth. 0 Discontinued (ALEVE) 220 mg 9 capsule acetaminophen Take 325 mg by 0 Discontinued (TYLENOL) 325 MG mouth every 6 9 tablet (six) hours as needed for fever. amIODarone Take 400 mg by 0 Discontinued (PACERONE) 400 MG mouth 2 (two) 9 tablet times a day. metoprolol tartrate Take 0.5 30 tablet 0 03/18/2019 Discontinued (LOPRESSOR) 25 mg tablets (12.5 9 tablet mg total) by mouth 2 (two) times a day for 30 days. acetaminophen-codei Take 1 tablet 28 tablet 0 03/18/2019 ne (TYLENOL WITH by mouth every 9 CODEINE #3) 300-30 6 (six) hours mg per tablet as needed for moderate pain for up to 7 days. Active Problems Problem Noted Date Femoral neck fracture 03/13/2019 Closed displaced fracture of right femoral neck 03/13/2019 Encounters Date Type Specialty Care Team Description 03/27/2019 Office Visit Orthopedic Surgery Jerome Diamond Closed displaced SAMUEL Olivier fracture of right femoral neck (HCC) (Primary Dx) 03/19/2019 Orders Only Orthopedic Surgery Spring Cervantes, Pain of right hip MA joint (Primary Dx) 03/14/2019 Anesthesia Event Orthopedic Surgery Leno Liang MD 03/14/2019 Surgery Orthopedic Surgery Terry Contreras ARTHROPLASTY, HIP, MD Kiko TOTAL 03/13/2019 - Hospital Encounter Cardiology Adrogue, Closed displaced 03/18/2019 Abeba Foster MD fracture of right Nathan Aviles femoral neck (HCC) MD Sushil (Primary Dx) 03/13/2019 Prep for Surgery Orthopedic Surgery Cheryl Stone 03/13/2019 Intake Access N/A 12/18/2018 Office Visit Orthopedic Surgery Kal Nixon Arthralgia of right knee (Primary Dx); MD Mirta Primary osteoarthritis of right knee after 04/03/2018 Family History Medical History Relation Name Comments No Known Problems Father No Known Problems Mother Relation Name Status Comments Father Mother Social History Tobacco Use Types Packs/Day Years [...] Vital Sign Reading Time Taken Blood Pressure 131/91 03/18/2019 12:15 PM CDT Pulse 74 03/18/2019 12:15 PM CDT Temperature 36.4 C (97.6 F) 03/18/2019 12:15 PM CDT Respiratory Rate 16 03/18/2019 12:15 PM CDT Oxygen Saturation 95% 03/18/2019 12:15 PM CDT Inhaled Oxygen Concentration - - Weight 90.7 kg (200 lb) 03/14/2019 10:29 AM CDT Height 185.4 cm (6' 1") 03/14/2019 10:29 AM CDT Body Mass Index 26.39 03/14/2019 10:29 AM CDT Plan of Treatment Date Type Specialty Care Team Description 06/27/2019 Office Visit Orthopedic Surgery Terry Contreras MD [address] [place] [address] [place] [phone] Health Maintenance Due Date Last Done Comments COLONOSCOPY SCREENING 1998 SHINGLES VACCINES (#1) 1998 65+ PNEUMOCOCCAL VACCINE (1 of 2 - PCV13) 2013 INFLUENZA VACCINE 03/28/2019 Implants Implanted Type Area Spot Facer Device Shelf Model / Identifier Expiration Serial / Lot Date Osseoti Cup - [id number] [id number] IMPLANT Right: [employer] 01/19/2028 [id number] / Implanted: Qty: 1 on 03/14/2019 by Terry Contreras MD DEVICES Hip / [id number] Liner G7 Neutral Arcomxl G40 - [id number] [id number] IMPLANT Right: [employer] 12/12/2023 [id number] / Implanted: Qty: 1 on 03/14/2019 by Terry Contreras MD DEVICES Hip / [id number] Cocr Fem Hd 40mm Type 1 Std - [id number] [id number] IMPLANT Right: [employer] [id number] / Implanted: 03/14/2019 (Quantity not on file) DEVICES Hip / [id number] Tprlc 133 Type1 Pps Ho 15.0, Taperloc Complete Stem - [id number] [id number] IMPLANT Right: [employer] 09/18/2028 [id number] / Implanted: Qty: 1 on 03/14/2019 by Terry Contreras MD DEVICES Hip / [id number] Procedures Procedure Name Priority Date/Time Associated Comments Diagnosis XR HIP 2-3 VIEWS RIGHT Routine 03/27/2019 2:48 Pain of right hip Results for this PM CDT joint procedure are in the results section. CT ANGIOGRAM PE CHEST STAT 03/18/2019 1:26 Results for this PM CDT procedure are in the results section. POC GLUCOSE Routine 03/18/2019 12:13 Results for this PM CDT procedure are in the results section. POC GLUCOSE Routine 03/18/2019 7:29 Results for this AM CDT procedure are in the results section. ESTIMATED GFR Routine 03/18/2019 4:00 Results for this AM CDT procedure are in the results section. PHOSPHORUS LEVEL Routine 03/18/2019 4:00 Results for this AM CDT procedure are in the results section. MAGNESIUM LEVEL Routine 03/18/2019 4:00 Results for this AM CDT procedure are in the results section. BASIC METABOLIC PANEL Routine 03/18/2019 4:00 Results for this AM CDT procedure are in the results section. HC COMPLETE BLD COUNT Routine 03/18/2019 4:00 Results for this W/AUTO DIFF AM CDT procedure are in the results section. POC GLUCOSE Routine 03/17/2019 10:20 Results for this PM CDT procedure are in the results section. POC GLUCOSE Routine 03/17/2019 7:49 Results for this AM CDT procedure are in the results section. XR CHEST 1 VW PORTABLE Routine 03/17/2019 5:45 Results for this AM CDT procedure are in the results section. ESTIMATED GFR Routine 03/17/2019 1:24 Results for this AM CDT procedure are in the results section. MAGNESIUM LEVEL Routine 03/17/2019 1:24 Results for this AM CDT procedure are in the results section. IONIZED CALCIUM Routine 03/17/2019 1:24 Results for this AM CDT procedure are in the results section. PHOSPHORUS LEVEL Routine 03/17/2019 1:24 Results for this AM CDT procedure are in the results section. BASIC METABOLIC PANEL Routine 03/17/2019 1:24 Results for this AM CDT procedure are in the results section. POC GLUCOSE Routine 03/17/2019 1:00 Results for this AM CDT procedure are in the results section. PARTIAL THROMBOPLASTIN Routine 03/17/2019 1:00 Results for this TIME (PTT) AM CDT procedure are in the results section. PROTHROMBIN TIME WITH Routine 03/17/2019 1:00 Results for this INR AM CDT procedure are in the results section. HC COMPLETE BLD COUNT Routine 03/17/2019 1:00 Results for this W/AUTO DIFF AM CDT procedure are in the results section. POC GLUCOSE Routine 03/16/2019 8:30 Results for this PM CDT procedure are in the results section. POC GLUCOSE Routine 03/16/2019 3:37 Results for this PM CDT procedure are in the results section. POC GLUCOSE Routine 03/16/2019 7:47 Results for this AM CDT procedure are in the results section. ECG 12-LEAD STAT 03/16/2019 4:43 Results for this AM CDT procedure are in the results section. ESTIMATED GFR Routine 03/16/2019 1:15 Results for this AM CDT procedure are in the results section. PROTHROMBIN TIME WITH Routine 03/16/2019 1:15 Results for this INR AM CDT procedure are in the results section. PHOSPHORUS LEVEL Routine 03/16/2019 1:15 Results for this AM CDT procedure are in the results section. PARTIAL THROMBOPLASTIN Routine 03/16/2019 1:15 Results for this TIME (PTT) AM CDT procedure are in the results section. MAGNESIUM LEVEL Routine 03/16/2019 1:15 Results for this AM CDT procedure are in the results section. IONIZED CALCIUM Routine 03/16/2019 1:15 Results for this AM CDT procedure are in the results section. BASIC METABOLIC PANEL Routine 03/16/2019 1:15 Results for this AM CDT procedure are in the results section. CBC WITH PLATELET AND Routine 03/16/2019 1:15 Results for this DIFFERENTIAL AM CDT procedure are in the results section. TROPONIN Timed 03/16/2019 1:15 Results for this AM CDT procedure are in the results section. POC GLUCOSE Routine 03/15/2019 8:26 Results for this PM CDT procedure are in the results section. TROPONIN Timed 03/15/2019 4:05 Results for this PM CDT procedure are in the results section. TROPONIN STAT 03/15/2019 9:17 Results for this AM CDT procedure are in the results section. ECG 12-LEAD STAT 03/15/2019 8:31 Results for this AM CDT procedure are in the results section. ESTIMATED GFR STAT 03/15/2019 8:23 Results for this AM CDT procedure are in the results section. IONIZED CALCIUM STAT 03/15/2019 8:23 Results for this AM CDT procedure are in the results section. PHOSPHORUS LEVEL STAT 03/15/2019 8:23 Results for this AM CDT procedure are in the results section. MAGNESIUM LEVEL STAT 03/15/2019 8:23 Results for this AM CDT procedure are in the results section. BASIC METABOLIC PANEL STAT 03/15/2019 8:23 Results for this AM CDT procedure are in the results section. ECHOCARDIOGRAM 2D Routine 03/15/2019 8:00 Results for this COMPLETE W MMODE AM CDT procedure are in SPECTRAL COLOR DOPPLER the results (67992) section. ESTIMATED GFR Routine 03/15/2019 2:39 Results for this AM CDT procedure are in the results section. CBC WITH PLATELET AND Routine 03/15/2019 2:39 Results for this DIFFERENTIAL AM CDT procedure are in the results section. BASIC METABOLIC PANEL Routine 03/15/2019 2:39 Results for this AM CDT procedure are in the results section. POC GLUCOSE Routine 03/14/2019 8:50 Results for this PM CDT procedure are in the results section. PROTHROMBIN TIME WITH STAT 03/14/2019 8:50 Results for this INR PM CDT procedure are in the results section. PARTIAL THROMBOPLASTIN STAT 03/14/2019 8:50 Results for this TIME (PTT) PM CDT procedure are in the results section. HC COMPLETE BLD COUNT STAT 03/14/2019 8:50 Results for this W/AUTO DIFF PM CDT procedure are in the results section. ARTERIAL BLOOD GAS STAT 03/14/2019 8:50 Results for this PM CDT procedure are in the results section. ESTIMATED GFR STAT 03/14/2019 8:34 Results for this PM CDT procedure are in the results section. PHOSPHORUS LEVEL STAT 03/14/2019 8:34 Results for this PM CDT procedure are in the results section. MAGNESIUM LEVEL STAT 03/14/2019 8:34 Results for this PM CDT procedure are in the results section. LACTIC ACID LEVEL STAT 03/14/2019 8:34 Results for this PM CDT procedure are in the results section. HEPATIC FUNCTION PANEL STAT 03/14/2019 8:34 Results for this PM CDT procedure are in the results section. BASIC METABOLIC PANEL STAT 03/14/2019 8:34 Results for this PM CDT procedure are in the results section. XR PELVIS 1 OR 2 VW Routine 03/14/2019 4:15 Results for this PM CDT procedure are in the results section. ESTIMATED GFR STAT 03/14/2019 3:55 Results for this PM CDT procedure are in the results section. BASIC METABOLIC PANEL STAT 03/14/2019 3:55 Results for this PM CDT procedure are in the results section. POC GLUCOSE Routine 03/14/2019 3:46 Results for this PM CDT procedure are in the results section. TROPONIN STAT 03/14/2019 3:35 Results for this PM CDT procedure are in the results section. B NATRIURETIC PEPTIDE STAT 03/14/2019 3:35 Results for this PM CDT procedure are in the results section. SURGICAL PATHOLOGY Routine 03/14/2019 3:13 Results for this REQUEST PM CDT procedure are in the results section. ECG 12-LEAD Routine 03/14/2019 2:26 Results for this PM CDT procedure are in the results section. XR PELVIS 1 OR 2 VW Routine 03/14/2019 2:16 Results for this PM CDT procedure are in the results section. ARTERIAL LINE Routine 03/14/2019 2:14 PM CDT Procedure Note - Gordon Nixon CRNA - 03/14/2019 2:14 PM CDT Arterial line Performed by: Gordon Nixon CRNA Authorized by: Leno Liang MD Patient Location: OR Staff: Anesthesiologist: Leno Liang MD Performed by: Anesthesiologist Pre-procedure: patient identified, IV checked, site and side verified, risks and benefits discussed, procedure verified, surgical consent complete, patient position confirmed, monitors and equipment checked and pre-op evaluation complete MSBT: antiseptic used, all elements of maximal sterile barrier technique followed, hand hygiene performed, cap/gown used by other personnel and solutions labeled TIme Out Performed: 03/14/2019 1:02 PM Indications: Indications: hemodynamic monitoring Anesthesia: Anesthesia: General Procedure Details: Arterial Line placement: Placed post induction Line placement site: Radial Line placement side: Right Arterial line gauge: 20 G Number of attempts: 1 Ultrasound guidance used: No Post-procedure: Post-procedure: Sterile dressing applied Post procedure circulation, sensation, movement: Normal Patient tolerance: Patient tolerated the procedure well with no immediate complications CA AN ELECTIVE ENDOTRACHEAL AIRWAY Routine 03/14/2019 2:13 PM CDT Procedure Note - Gordon Nixon CRNA - 03/14/2019 2:13 PM CDT Airway Performed by: Gordon Nixon CRNA Authorized by: Leno Liang MD Location: OR Urgency: Elective Difficult Airway: No Preoxygenated with 100% O2: Yes C-spine Precautions Maintained Throughout: No Mask Ventilation: Easy mask (with OPA) Final Airway Type: Endotracheal airway Final Endotracheal Airway: ETT Cuffed: Yes Technique Used: Direct laryngoscopy Devices/Methods Used in Placement: Bougie Insertion Site: Oral Blade Type: Borja Laryngoscope Blade/Videolaryngoscope Blade Size: 2 ETT Size (mm): 7.0 Cuff at minimum occlusion pressure: Yes Measured from: Lips ETT to Lips (cm): 22 Placement Verified by: CO2 detection and direct visualization Laryngoscopic view: Grade I - full view of glottis Rapid Sequence Induction (RSI): No Modified RSI: No Number of Attempts at Approach: 1 Smooth/atraumatic DL, dentition unchanged. ARTHROPLASTY, HIP, TOTAL 03/14/2019 11:30 AM CDT Closed displaced fracture of right femoral neck (HCC) Special Needs REQ 1130 START POC GLUCOSE Routine 03/14/2019 11:01 AM Results for this CDT procedure are in the results section. TYPE AND SCREEN Routine 03/14/2019 8:07 AM Results for this CDT procedure are in the results section. PROTHROMBIN TIME WITH Routine 03/14/2019 6:04 AM Results for this INR CDT procedure are in the results section. PARTIAL THROMBOPLASTIN Routine 03/14/2019 6:04 AM Results for this TIME (PTT) CDT procedure are in the results section. HC COMPLETE BLD COUNT Routine 03/14/2019 6:04 AM Results for this W/AUTO DIFF CDT procedure are in the results section. ESTIMATED GFR Routine 03/14/2019 4:00 AM Results for this CDT procedure are in the results section. BASIC METABOLIC PANEL Routine 03/14/2019 4:00 AM Results for this CDT procedure are in the results section. XR HIP 2-3 VIEWS RIGHT STAT 03/13/2019 3:26 PM Results for this CDT procedure are in the results section. URINALYSIS SCREEN AND Routine 03/13/2019 10:06 AM Results for this MICROSCOPY, WITH REFLEX CDT procedure are in TO CULTURE the results section. URINE CULTURE Routine 03/13/2019 10:03 AM Results for this CDT procedure are in the results section. ECG 12-LEAD STAT 03/13/2019 9:09 AM Results for this CDT procedure are in the results section. CREATINE KINASE, TOTAL Routine 03/13/2019 5:45 AM Results for this (CPK) CDT procedure are in the results section. ESTIMATED GFR Routine 03/13/2019 5:45 AM Results for this CDT procedure are in the results section. PARTIAL THROMBOPLASTIN STAT 03/13/2019 5:45 AM Results for this TIME (PTT) CDT procedure are in the results section. PROTHROMBIN TIME WITH STAT 03/13/2019 5:45 AM Results for this INR CDT procedure are in the results section. HC COMPLETE BLD COUNT STAT 03/13/2019 5:45 AM Results for this W/AUTO DIFF CDT procedure are in the results section. TROPONIN STAT 03/13/2019 5:45 AM Results for this CDT procedure are in the results section. B NATRIURETIC PEPTIDE Routine 03/13/2019 5:45 AM Results for this CDT procedure are in the results section. PHOSPHORUS LEVEL Routine 03/13/2019 5:45 AM Results for this CDT procedure are in the results section. MAGNESIUM LEVEL Routine 03/13/2019 5:45 AM Results for this CDT procedure are in the results section. LACTIC ACID LEVEL Routine 03/13/2019 5:45 AM Results for this CDT procedure are in the results section. COMPREHENSIVE METABOLIC Routine 03/13/2019 5:45 AM Results for this PANEL CDT procedure are in the results section. XR CHEST EXTERNAL STUDY Routine 03/12/2019 10:48 PM Results for this CDT procedure are in the results section. XR LOWER EXTREMITY Routine 03/12/2019 10:45 PM Results for this EXTERNAL STUDY CDT procedure are in the results section. XR LOWER EXTREMITY Routine 03/12/2019 10:31 PM Results for this EXTERNAL STUDY CDT procedure are in the results section. XR KNEE 4+ VW RIGHT Routine 12/18/2018 12:28 PM Arthralgia of Results for this CDT right knee procedure are in the results section. after 04/03/2018 Results XR Hip 2-3 View Right (03/27/2019 2:48 PM CDT)Only the most recent of2 resultswithin the time period is included. Specimen Narrative Performed At Right hip xray shows status post right total knee arthroplasty with HM [facility] components in good place. No signs of osteolysis or loosening. No fractures noted. Performing Organization Address City/State/Zipcode Phone Number [facility] [address] [place] [address] CT Angiogram Pe Chest (03/18/2019 1:26 PM CDT) Specimen Narrative Performed At EXAMINATION: [facility] CT ANGIOGRAM PE CHEST CLINICAL HISTORY: Rule out PE TECHNIQUE: CT angiographic images of the chest were obtained during intravenous administration of iodinated contrast. Computerized reformatted images and 3-D MIP images were also obtained and archived (CT pulmonary embolus protocol). CT scans are performed using radiation dose reduction techniques. Technical factors are evaluated and adjusted to ensure appropriate moderation of exposure. Automated dose management technology is applied to adjust radiation exposure while achieving a diagnostic quality image. COMPARISON: None. FINDINGS: Pulmonary arteries: No evidence of pulmonary thromboembolism seen to the level of the segmental arteries. Main pulmonary artery is of normal caliber. Cardiovascular: Cardiomegaly. No significant pericardial effusion. Thoracic aorta is of normal caliber and demonstrates normal branching. Lungs, airways and pleural spaces: Small bilateral pleural effusions and dependent atelectasis within the lower lobes. No pneumothorax. Thoracic inlet, mediastinum and lymph nodes: Multiple mildly prominent mediastinal lymph nodes, possibly reactive. Upper abdomen: 16mm right adrenal adenoma. Musculoskeletal: Mild osseous degenerative changes and osseous demineralization. IMPRESSION: *No evidence of PE to the segmental arteries. *Moderate cardiomegaly with enlargement of the right heart, reflux of contrast within the hepatic veins. Findings suggest right heart dysfunction. *Small bilateral pleural effusions. Procedure Note Interface, Radiology Results Incoming - 03/18/2019 1:40 PM CDT EXAMINATION: CT ANGIOGRAM PE CHEST CLINICAL HISTORY: Rule out PE TECHNIQUE: CT angiographic images of the chest were obtained during intravenous administration of iodinated contrast. Computerized reformatted images and 3-D MIP images were also obtained and archived (CT pulmonary embolus protocol). CT scans are performed using radiation dose reduction techniques. Technical factors are evaluated and adjusted to ensure appropriate moderation of exposure. Automated dose management technology is applied to adjust radiation exposure while achieving a diagnostic quality image. COMPARISON: None. FINDINGS: Pulmonary arteries: No evidence of pulmonary thromboembolism seen to the level of the segmental arteries. Main pulmonary artery is of normal caliber. Cardiovascular: Cardiomegaly. No significant pericardial effusion. Thoracic aorta is of normal caliber and demonstrates normal branching. Lungs, airways and pleural spaces: Small bilateral pleural effusions and dependent atelectasis within the lower lobes. No pneumothorax. Thoracic inlet, mediastinum and lymph nodes: Multiple mildly prominent mediastinal lymph nodes, possibly reactive. Upper abdomen: 16mm right adrenal adenoma. Musculoskeletal: Mild osseous degenerative changes and osseous demineralization. IMPRESSION: * No evidence of PE to the segmental arteries. * Moderate cardiomegaly with enlargement of the right heart, reflux of contrast within the hepatic veins. Findings suggest right heart dysfunction. * Small bilateral pleural effusions. Performing Organization Address [place]/[facility]/Zipcode Phone Number [address] [address] POC glucose (03/18/2019 12:13 PM CDT)Only the most recent of12 resultswithin the time period is included. Pathologist [facility] POC glucose 99 65 - 99 mg/dL [facility] Comment: HOSPITAL No Action Needed Meter ID: [id number] Welfare Service Aide: Cristi Rosenthal Specimen Performing Organization Address [place]/[facility] Phone Number [facility] DEPARTMENT OF PATHOLOGY AND [address] [place] [phone] [place] [phone] Estimated GFR (03/18/2019 4:00 AM CDT)Only the most recent of9 resultswithin the time period is included. [facility] Estimated GFR >=90 mL/min/1.73 [facility] Comment: [address] CatergoryUnitsInterpretation G1 >=90 Normal or high G2 60-89Mildly decreased [id number] to moderately decreased [id number] to severely decreased G4 15-29Severely decreased G5 <15Kidney failure The eGFR was calculated using the Chronic Kidney Disease Epidemiology Collaboration (CKD-EPI) equation. Interpretation is based on recommendations of the National Kidney Foundation-Kidney Disease Outcomes Quality Initiative (NKF-KDOQI) published in 2014. Specimen Plasma specimen Performing Organization Address [place]/[facility]/Zipcode Phone Number [facility] DEPARTMENT OF PATHOLOGY AND [address] [place] [phone] CBC with platelet and differential (03/18/2019 4:00 AM CDT)Only the most recent of7 resultswithin the time period is included. [facility] WBC 8.95 4.50 - 11.00 [facility] RBC 3.56 (L) 4.40 - 6.00 [facility] m/uL HOSPITAL HGB 10.7 (L) 14.0 - 18.0 [facility] g/dL [facility] HCT 32.6 (L) 41.0 - 51.0 % [facility] MCV 91.6 82.0 - 100.0 [facility] MCH 30.1 27.0 - 34.0 pg [facility] MCHC 32.8 31.0 - 37.0 [facility] gdL [facility] RDW - SD 45.9 37.0 - 55.0 fL [facility] MPV 9.7 8.8 - 13.2 [facility] Platelet count 179 150 - 400 k/uL [facility] Nucleated RBC 0.00 /100 WBC [facility] Neutrophils 75.1 (H) 39.0 - 69.0 % [facility] Lymphocytes 12.1 (L) 25.0 - 45.0 % [facility] Monocytes 10.4 (H) 0.0 - 10.0 % [facility] Eosinophils 1.5 0.0 - 5.0 % [facility] Basophils 0.3 0.0 - 1.0 % [facility] Immature granulocytes 0.6Comment: 0.0 - 1.0 % [facility] "[facility] granulocytes" (promyelocytes , myelocytes, metamyelocytes ) Specimen Blood Performing Organization Address City/[facility] Mex[facility]ocode Phone Number [facility] DEPARTMENT OF PATHOLOGY AND [address] [place] [phone] Phosphorus level (03/18/2019 4:00 AM CDT)Only the most recent of6 resultswithin the time period is included. Phosphorus 2.3 (L) 2.4 - 4.5 mg/dL [facility] Specimen Plasma specimen Performing Organization Address City/[facility]/Zipcode Phone Number [facility] DEPARTMENT OF PATHOLOGY AND [address] [place] [address] Magnesium level (03/18/2019 4:00 AM CDT)Only the most recent of6 resultswithin the time period is included. Magnesium 1.9 1.6 - 2.4 mg/dL [facility] Specimen Plasma specimen Performing Organization Address City/State/Zipcode Phone Number [facility] DEPARTMENT OF PATHOLOGY AND [address] [place] [phone] [place] [phone] Basic metabolic panel (03/18/2019 4:00 AM CDT)Only the most recent of8 resultswithin the time period is included. Sodium 136 135 - 148 mEq/L [facility] Potassium 3.7 3.5 - 5.0 mEq/L [facility] Chloride 99 98 - 112 mEq/L [facility] CO2 27 24 - 31 mEq/L [facility] Anion gap 10@ANIO 7 - 15 mEq/L [facility] BUN 12 8 - 23 mg/dL [facility] Creatinine 0.73 0.70 - 1.20 mg/dL [facility] Glucose 100 (H) 65 - 99 mg/dL [facility] Calcium 8.6 (L) 8.8 - 10.2 mg/dL [facility] Specimen Plasma specimen Performing Organization Address City/[facility] Phone Number [facility] DEPARTMENT OF PATHOLOGY AND [address] [place] [phone] XR Chest 1 Vw Portable (03/17/2019 5:45 AM CDT) Specimen Narrative Performed At EXAMINATION:XR CHEST 1 [facility] H[facility]:Dependence on respirator [ventilator] status COMPARISON:March 12, 2019 IMPRESSION: Lungs are well-inflated. No infiltrate, consolidation, pleural effusion or pneumothorax seen. Mild cardiomegaly, unchanged. Focal arch calcification. Osseous degenerative changes. [id number] Procedure Note Interface, Radiology Results Incoming - 03/17/2019 9:52 AM CDT EXAMINATION: XR CHEST 1 VW PORTABLE CLINICAL HISTORY: Dependence on respirator [ventilator] status COMPARISON: March 12, 2019 IMPRESSION: Lungs are well-inflated. No infiltrate, consolidation, pleural effusion or pneumothorax seen. Mild cardiomegaly, unchanged. Focal arch calcification. Osseous degenerative changes. [id number] Performing Organization Address City/[facility]/Zipcode Phone Number [address] [address] Ionized calcium (03/17/2019 1:24 AM CDT)Only the most recent of3 resultswithin the time period is included. Pathologist [facility] pH 7.48 [facility] Ionized calcium 1.05 (L) 1.11 - 1.32 [facility] mmol/L HOSPITAL Specimen Plasma specimen Performing Organization Address City/[facility] Phone Number [facility] DEPARTMENT OF PATHOLOGY AND [address] [place] [address] Partial thromboplastin time, activated (03/17/2019 1:00 AM CDT)Only the most recent of5 resultswithin the time period is included. [facility] PTT 36.7 (H) 23.0 - 36.0 [facility] Comment: [facility] PTT therapeutic range for unfractionated heparin is 61.0-112.0 seconds which corresponds to Anti-Xa 0.3-0.7 U/ml. Specimen Blood Performing Organization Address [place]/[facility] Phone Number [facility] DEPARTMENT OF PATHOLOGY AND [address] [place] [address] Prothrombin time with INR (03/17/2019 1:00 AM CDT)Only the most recent of5 resultswithin the time period is included. [facility] Prothrombin time 17.4 (H) 11.5 - 14.5 [facility] INR 1.5 [facility] Comment: [facility] International Normalized Ratio (INR) is a therapeutic HOSPITAL monitoring tool for patients who are stable on oral anticoagulant therapy. An INR of 2.0-3.0 is suggested for deep vein thrombosis/pulmonary embolism. Specimen Blood Performing Organization Address City/[facility] Phone Number [facility] DEPARTMENT OF PATHOLOGY AND [address] [place] [address] ECG 12 lead (03/16/2019 4:43 AM CDT)Only the most recent of4 resultswithin the time period is included. Pathologist [facility] Ventricular rate 78 [facility] Atrial rate 340 [facility] QRSD interval 90 [facility] QT interval 414 [facility] QTC interval 471 [facility] QRS axis 1 4 [facility] T wave axis 62 [facility] EKG impression Atrial [facility] MUSE fibrillation-Nonspecifi c T wave abnormality-Prolonged QT-Abnormal ECG-In automated comparison with ECG of 15-MAR-2019 08:31,-No significant change was found- Specimen Narrative Performed At Performing Organization Address [place]/[facility]/Zipcode Phone Number [facility] MUSE [address] [place] [address] Troponin (03/16/2019 1:15 AM CDT)Only the most recent of5 resultswithin the time period is included. Troponin 0.007 0.000 - 0.040 [facility] Comment: ng/mL [facility] changed methodology effective: 01/01/2019 at 10:00 am The new method has a 99th percentile cutoff of 0.040 ng/mL Specimen Plasma specimen Performing Organization Address City/[facility] Phone Number [facility] DEPARTMENT OF PATHOLOGY AND [address] [place] [address] [place] [address] Echocardiogram complete w contrast and 3D if needed (03/15/2019 8:00 AM CDT) Specimen Narrative Performed At [facility] Echocardiography Report [address] [place] [address] Pat.Name:RAFI ORTEGA.ID:[id number] .Date: 03/15/2019 Refer.MD:ABEBA PERRIN MD Exam Time: 7:20:00 AMStudy Type:Routine Echo Height:73inBSA: 2.15 m2 DOBAge:1950,68Y Sex: MALE BP:149/75HR: 72 bpm Sonogrphr: Steph Edmond RDCSPat. Stat.:Inpatient Room:[place] [address] Study Status:Final Echo Event ID:[id number] Order ID:[id number] Reason for Study:Afib Procedures:2D Echo, Colorflow Doppler, Portable SUMMARY: LV EF is normal. Estimated EF is 60-64%. RV size is mildly enlarged. RV systolic function is normal. LA volume is severely enlarged. RA volume is severely enlarged. Moderate to severe tricuspid regurgitation Estimated PA systolic pressure is 40 mmHg, assuming a mean RAP of 20 mmHg. FINDINGS: LV: LV size is normal. LV EF is normal. Overall wall motion is normal.Estimated EF is 60-64%. RV: RV size is mildly enlarged. RV systolic function is normal. LA: LA volume is severely enlarged. RA: RA volume is severely enlarged. AO: Aortic root diameter is normal. PRATIBHA: No pericardial effusion. AV: No structural AV abnormalities noted. MV: No structural MV abnormalities noted. PV: No structural PV abnormalities noted. Mild pulmonic regurgitation. TV: Dilated tricuspid annulus. Moderate to severe tricuspid regurgitation Roldan: Normal diastolic function. Other:Estimated PA systolic pressure is 40 mmHg, assuming a mean RAPof 20 mmHg. MEASUREMENTS: 2D Parasternal Long [place]eyo LA Ds4.7 cmLVPWd1.2 cm LVOT 2 cmAo An2 cm LVIDd5 cmIndex2.3 cm/m Ao Rtd 4.1 cm Index1.9 cm/m LVIDs3 cm LV Fgbw983.7 g(122-174) LV%fs 38.9 % LVM Bwxrt691.8 g/m2 IVSd 1.1 cmRWT0.5 LA Sng Plane LA Area 33.5 cm2(8.8-23.4) LA Vol 121.7 ml Index56.6 ml/m LA LngAx 7.7 cm RA Sng Plane RA Area 39.5 cm2(8.3-19.5) RA Vol 168.2 ml Index78.2 ml/m RA LngAx 7.9 cm DOPPLER LVOT Stroke Vol LVOT 2 cmLVOT CO4.3 l/min LVOT TVI20 cmLVOT CI2 l/m/m2 LVOT Tm298 ivwyCJ13 bpm LVOT SV 62.9 ml Signed 03/15/2019 02:01 PM Enoch Nieto M.D. Procedure Note Interface, Radiology Results In - 03/15/2019 2:01 PM CDT Echocardiography Report [address] [place] [address] Pat.Name: RAFI ORTEGA.ID: [id number] .Date: 03/15/2019 Refer.MD: ABEBA PERRIN MD Exam Time: 7:20:00 AM Study Type:Routine Echo Height: 73in BSA: 2.15 m2 Age: 2 1950,68Y Sex: MALE BP: 149/75 HR: 72 bpm Sonogrphr: Steph Edmond RDCSPat. Stat.:Inpatient Room: [place] [address] Study Status:Final Echo Event ID:[id number] Order ID: [id number] Reason for Study:Afib Procedures:2D Echo, Colorflow Doppler, Portable SUMMARY: LV EF is normal. Estimated EF is 60-64%. RV size is mildly enlarged. RV systolic function is normal. LA volume is severely enlarged. RA volume is severely enlarged. Moderate to severe tricuspid regurgitation Estimated PA systolic pressure is 40 mmHg, assuming a mean RAP of 20 mmHg. FINDINGS: LV: LV size is normal. LV EF is normal. Overall wall motion is normal. Estimated EF is 60-64%. RV: RV size is mildly enlarged. RV systolic function is normal. LA: LA volume is severely enlarged. RA: RA volume is severely enlarged. AO: Aortic root diameter is normal. PRATIBHA: No pericardial effusion. AV: No structural AV abnormalities noted. MV: No structural MV abnormalities noted. PV: No structural PV abnormalities noted. Mild pulmonic regurgitation. TV: Dilated tricuspid annulus. Moderate to severe tricuspid regurgitation Roldan: Normal diastolic function. Other: Estimated PA systolic pressure is 40 mmHg, assuming a mean RAP of 20 mmHg. MEASUREMENTS: 2D Parasternal Long [place]o LA Ds 4.7 cm LVPWd 1.2 cm LVOT 2 cm Ao An 2 cm LVIDd 5 cm Index 2.3 cm/m Ao Rtd 4.1 cm Index 1.9 cm/m LVIDs 3 cm LV Mass 229.7 g (122-174) LV%fs 38.9 % LVM Index 106.8 g/m2 IVSd 1.1 cm RWT 0.5 LA Sng Plane LA Area 33.5 cm2 (8.8-23.4) LA Vol 121.7 ml Index 56.6 ml/m LA LngAx 7.7 cm RA Sng Plane RA Area 39.5 cm2 (8.3-19.5) RA Vol 168.2 ml Index 78.2 ml/m RA LngAx 7.9 cm DOPPLER LVOT Stroke Vol LVOT 2 cm LVOT CO 4.3 l/min LVOT TVI 20 cm LVOT CI 2 l/m/m2 LVOT Tm 298 msec HR 68 bpm LVOT SV 62.9 ml Signed 03/15/2019 02:01 PM Enoch Nieto M.D. Performing Organization Address City/State/Zipcode Phone Number [facility] [address] [place] [address] Arterial blood gas (03/14/2019 8:50 PM CDT) pH, arterial 7.37 7.35 - 7.45 [facility] pCO2, arterial 36 35 - 45 mmHg [facility] pO2, arterial 109 (H) 80 - 90 mmHg [facility] Bicarbonate, 20.4 (L) 21.0 - 28.0 [facility] arterial mmol/L HOSPITAL Base excess, -4 (L) -2 - 2 mEq/L [facility] O2 saturation, 98 95 - 100 % [facility] Specimen Blood Performing Organization Address City/[facility] Phone Number [facility] DEPARTMENT OF PATHOLOGY AND [address] [place] [address] Lactic acid level (03/14/2019 8:34 PM CDT)Only the most recent of2 resultswithin the time period is included. Pathologist [facility] Lactic acid 2.0 0.5 - 2.2 mmol/L [facility] Specimen Plasma specimen Performing Organization Address [place]/[facility] Phone Number [facility] DEPARTMENT OF PATHOLOGY AND [address] [place] [id number] [place] [address] Hepatic function panel (03/14/2019 8:34 PM CDT) Pathologist [facility] Albumin 3.7 3.5 - 5.0 g/dL [facility] Total bilirubin 3.0 (H) 0.0 - 1.2 [facility] mg/dL HOSPITAL Bilirubin direct 1.0 (H) 0.0 - 0.3 [facility] mg/dL [facility] Alkaline phosphatase 54 40 - 129 U/L [facility] Protein 7.0 6.3 - 8.3 g/dL [facility] Comment: HOSPITAL [place] 4.6-7.0 g/dL 1 week 4.4-7.6 g/dL 7 months-1year5.1-7.3 g/dL 1-2 years5.6-7.5 g/dL >3 years6.0-8.0 g/dL 18-150 6.3-8.3 g/dL ALT 30 5 - 50 U/L [facility] AST 33 10 - 50 U/L [facility] Specimen Plasma specimen Performing Organization Address City/State/Zipcode Phone Number [facility] DEPARTMENT OF PATHOLOGY AND [address] [place] [address] GENOMIC MEDICINE [address] [address] XR Pelvis 1 Or 2 Vw (03/14/2019 4:15 PM CDT)Only the most recent of2 resultswithin the time period is included. Specimen Narrative Performed At EXAMINATION:XR PELVIS 1 OR 2 VW [facility] CLINICAL HISTORY:Post operative COMPARISON:None. IMPRESSION: Patient is status post right hip arthroplasty. Hardware intact. No periprosthetic fracture or dislocation. Expected postoperative changes in the soft tissues. [facility]-[id number] Procedure Note Hm Interface, Radiology Results Incoming - 03/14/2019 4:20 PM CDT EXAMINATION: XR PELVIS 1 OR 2 VW CLINICAL HISTORY: Post operative COMPARISON: None. IMPRESSION: Patient is status post right hip arthroplasty. Hardware intact. No periprosthetic fracture or dislocation. Expected postoperative changes in the soft tissues. [facility]-[id number] Performing Organization Address [place]/[facility] Phone Number [facility] [address] [place] [address] B natriuretic peptide (03/14/2019 3:35 PM CDT)Only the most recent of2 resultswithin the time period is included. BNP 108 (H) 0 - 100 pg/mL [facility] Specimen Blood Performing Organization Address City/[facility]/Zipcode Phone Number [facility] DEPARTMENT OF PATHOLOGY AND [address] [place] [address] GENOMIC MEDICINE [address] [address] Surgical pathology request (03/14/2019 3:13 PM CDT) [facility] DEPARTMENT OF PATHOLOGY AND GENOMIC MEDICINE Surgical pathology See link below [facility] DEPARTMENT OF report for PDF Lab PATHOLOGY AND Report GENOMIC MEDICINE Result status This is Final [facility] DEPARTMENT OF Report for PATHOLOGY AND [id number] [facility] Specimen Performing Organization Address [place]/[facility]/Zipcode Phone Number [facility] DEPARTMENT OF PATHOLOGY AND [address] [place] [address] GENOMIC MEDICINE Type and screen (03/14/2019 8:07 AM CDT) ABO grouping A [facility] Rh type POS [facility] Antibody screen (gel) NEG [facility] Specimen Blood Performing Organization Address City/State/Zipcode Phone Number [facility] DEPARTMENT OF PATHOLOGY AND [address] [place] [phone] [address] Urinalysis screen and microscopy, with reflex to culture (03/13/2019 10:06 AM CDT) Specimen site Clean catch [facility] Color, UA Yellow [facility] Appearance, UA Clear [facility] Specific gravity, 1.011 1.001 - 1.035 [facility] pH, UA 7.0 5.0 - 8.5 [facility] Protein, UA Negative Negative [facility] Glucose, UA Negative Negative [facility] Ketones, UA Trace (A) Negative [facility] Bilirubin, UA Negative Negative [facility] Blood, UA Negative Negative [facility] Nitrite, UA Negative Negative [facility] Urobilinogen, UA 4.0 (A) <2.0 [facility] Leukocyte esterase, Negative Negative [facility] WBC, UA <1 0 - 1 /HPF [facility] RBC, UA <1 0 - 5 /HPF [facility] Bacteria, UA None seen None seen [facility] Yeast, UA None seen [facility] Yeast with None seen [facility] pseudohyphae, [facility] Specimen Urine Performing Organization Address City/[facility] Phone Number [facility] DEPARTMENT OF PATHOLOGY AND [address] [place] [phone] [address] Urine culture (03/13/2019 10:03 AM CDT) Urine culture SEE COMMENTComment: [facility] Bacteriuria screen HOSPITAL negative. Specimen Performing Organization Address City/State/Zipcode Phone Number [facility] DEPARTMENT OF PATHOLOGY AND [address] [place] [phone] [address] Creatine kinase, total (CPK) (03/13/2019 5:45 AM CDT) Creatine kinase 151 39 - 308 U/L [facility] Specimen Plasma specimen Performing Organization Address City/State/Zipcode Phone Number [facility] DEPARTMENT OF PATHOLOGY AND [address] [place] [address] [facility] [address] [place] [address] Comprehensive metabolic panel (03/13/2019 5:45 AM CDT) Sodium 138 135 - 148 [facility] mEq/L [facility] Potassium 4.3 3.5 - 5.0 [facility] mEq/L [facility] Chloride 103 98 - 112 mEq/L [facility] CO2 24 24 - 31 mEq/L [facility] Anion gap 11@ANIO 7 - 15 mEq/L [facility] BUN 15 8 - 23 mg/dL [facility] Creatinine 0.98 0.70 - 1.20 [facility] mg/dL HOSPITAL Glucose 108 (H) 65 - 99 mg/dL [facility] Calcium 8.6 (L) 8.8 - 10.2 [facility] mg/dL [facility] Protein 6.7 6.3 - 8.3 g/dL [facility] Comment: HOSPITAL [place] 4.6-7.0 g/dL 1 week 4.4-7.6 g/dL 7 months-1year5.1-7.3 g/dL 1-2 years5.6-7.5 g/dL >3 years6.0-8.0 g/dL 18-150 6.3-8.3 g/dL Albumin 3.6 3.5 - 5.0 g/dL [facility] A/G ratio 1.2 0.7 - 3.8 [facility] Alkaline phosphatase 57 40 - 129 U/L [facility] AST 27 10 - 50 U/L [facility] ALT 30 5 - 50 U/L [facility] Total bilirubin 1.8 (H) 0.0 - 1.2 [facility] mg/dL HOSPITAL Specimen Plasma specimen Performing Organization Address City/State/Zipcode Phone Number [facility] DEPARTMENT OF PATHOLOGY AND [address] [place] [address] [facility] [address] [place] [address] XR Chest External Study (03/12/2019 10:48 PM CDT) Specimen Narrative Performed At This exam was not acquired at a Hinduism facility and has not been [facility] interpreted by a Hinduism Provider.The exam was imported into our imaging system for comparisons purposes. Performing Organization Address City/State/Zipcode Phone Number [facility] [address] [place] [address] XR Lower Extremity External Study (03/12/2019 10:45 PM CDT)Only the most recent of2 resultswithin the time period is included. Specimen Narrative Performed At This exam was not acquired at a Hinduism facility and has not been [facility] interpreted by a Hinduism Provider.The exam was imported into our imaging system for comparisons purposes. Performing Organization Address City/State/Zipcode Phone Number [facility] [address] [place] [address] XR Knee 4+ Vw Right (12/18/2018 12:28 PM CDT) Specimen Narrative Performed At Severe right knee OA with bone on bone contact, cystic changes, marginal [facility] osteophytes, loose bodies, bones reasonably mineralized.Valgus malalignment. Performing Organization Address [place]/[facility] Phone Number [facility] [address] [place] [address] after 04/03/[address] ([address] [place] [phone] Advance Directives Patient has advance care planning documents on file. For more information, please contact:Oswald Bonds[address] [place] [phone]
[2019-04-04] MEDS ORDERED: NA CHLORIDE 0.9% 500 ML ONE (06:58)
[2019-04-04] MEDS ORDERED: MIDAZOLAM HCL 5 MG/5 ML INJ ONE (07:23)
[2019-04-04] MEDS ORDERED: ATROPINE SULF 1 MG/10 ML SYR IV ONE (07:23)
[2019-04-04] MEDS ORDERED: MIDAZOLAM HCL 2 MG/2 ML INJ ONE (07:47)
[2019-04-04 08:37] VITALS: TEMP 97.9
[2019-04-04 08:51] VITALS: O2SAT 100
[2019-04-04 09:18] VITALS: BP 116/64
--- NOTE | 2019-04-04 15:44 | OP ---
Date of Procedure: 04/04/2019 Surgeon: Shelton Humphries MD [employer] Engineer: Jon. The patient was admitted to my service as an outpatient, today 04/04/2019. Procedure Performed: Direct current cardioversion. Indication: Recurrent atrial fibrillation. Mr. Morin is 68, has had atrial fibrillation that is symptomatic. He about a month ago had a card ioversion on beta-blockers and Eliquis and he converted to sinus rhythm, but then he went back to atr ial fibrillation. He was loaded with amiodarone this time 4:00 b.i.d. for a week, then placed on ami odarone 200 mg daily, remained in atrial fibrillation rate controlled still with symptoms. Admitted today for cardioversion. He received 16 mg of Versed total for IV sedation. He received a 3 total o f 3 shocks, 1 with 100, 2 with 200 joules, and then he converted to sinus rhythm. No complications o r blood loss. Postoperative Diagnosis: Successful cardioversion of atrial fibrillation to sinus rhythm. We will c ontinue amiodarone, amiodarone and Eliquis. If he goes back into atrial fibrillation, he will need a n ablation. REESE/MARIA VICTORIA Voice ID: [id number] Report ID: [id number]
--- NOTE | 2019-04-04 16:29 | EKG ---
Test Date: 2019-04-04 Test Time: 07:57:02 Case Reviewer: KARLA MEASUREMENT RESULTS: Intervals: Rate: 68 NV: 206 QRSD: 92 QT: 448 QTc: 476 [place]: P: 83 NV: 206 QRS: 40 T: 49 INTERPRETIVE STATEMENTS: Normal sinus rhythm with sinus arrhythmia Normal ECG Compared to ECG 01/22/2019 10:19:46 T-wave abnormality no longer present Electronically Signed On 04-04-19 16:26:16 CDT by Shelton Humphries
== END 2019-04-04 09:14 | disposition home or self-care (01) ==
LOC: PRE 06:31
DX: I48.2 Chronic atrial fibrillation (principal); I10 Essential (primary) hypertension; Z82.49 Family history of ischemic heart disease and other diseases of the circulatory system
CPT/HCPCS: 93005; 85025; 80048; 36415; 85610; 85730; 92960; J2250 ×2